=== PATIENT | male | born 1955 | race Hispanic/Latino ===

== ENCOUNTER 2020-10-18 07:53 | Outpatient (CLI) | payer MEDICARE | END 2020-10-18 07:54 | disposition home or self-care (01) | LOC: CSHULT 07:53 | PROVIDERS: ATTEND Internal Medicine | DX: Z94.4 Liver transplant status (principal); R74.9 Abnormal serum enzyme level, unspecified; R93.2 Abnormal findings on diagnostic imaging of liver and biliary tract | CPT/HCPCS: 93975 ==

== ENCOUNTER 2023-03-31 12:44 | Inpatient (IN) | payer MEDICARE ==
[2023-03-31 14:11] LABS: #Basophils 0.1 10x3/uL (0.0-0.2); #Monocytes 0.6 10x3/uL (0.0-1.1); #Neutrophils 3.9 10x3/uL (1.5-8.4); %Basophils 0.8 % (0.0-2.0); %Eosinophils 0.5 % (0.0-6.0); %Lymphocytes 23.6 % (18.0-47.0); %Monocytes 9.4 % (0.0-10.0); %Neutrophils 65.4 % (40.0-75.0); Hematocrit 42.7 % (38.8-50.0); Mean Corpuscular HGB CONC 32.8 g/dL (32.0-36.0); Mean Corpuscular Hemoglobin 32.4 pg (27.0-33.0); Mean Corpuscular Volume 98.8 fl (81.2-95.1); Platelet Count 205 10x3/uL (150-450); RBC Distribution Width 12.9 % (11.5-14.5); Red Blood Cell (RBC) Count 4.32 10x6/uL (4.32-5.72); White Blood Cell (WBC) Count 5.9 10x3/uL (3.5-10.5)
[2023-03-31 14:20] LABS: ALT (SGPT) 21 U/L (8-55); AST (SGOT) 211 U/L (5-34); Albumin 3.5 g/dL (3.4-4.8); Alkaline Phosphatase 285 U/L (40-110); Anion Gap 19 mmol/L (10-20); BUN (Urea Nitrogen) 40 mg/dL (8.4-25.7); Bilirubin, Total 0.8 mg/dL (0.2-1.2); Calc. Creatinine Clearance 0 mL/min (70-130); Calcium 8.8 mg/dL (7.8-10.44); Carbon Dioxide 19 mmol/L (23-31); Chloride 104 mmol/L (98-107); Estimated GFR 33; Globulin 3.4 g/dL (2.4-3.5); Glucose 157 mg/dL (80-115); Potassium 4.3 mmol/L (3.5-5.1); Protein, Total 6.9 g/dL (5.8-8.1); Sodium 138 mmol/L (136-145)
[2023-03-31] MEDS ORDERED: Ondansetron ODT 4 MG TAB PO PRN (15:49)
[2023-03-31] MEDS ORDERED: Glucagon 1 MG/ML KIT IM PRN (15:49)
[2023-03-31] MEDS ORDERED: Acetaminophen 325 MG TAB PO PRN (15:49)
[2023-03-31] MEDS ORDERED: Dextrose 50% Abboject 50 ML SYRINGE SLOW IVP PRN (15:49)
[2023-03-31] MEDS ORDERED: Dextrose 5% in Water 1,000 ML IV PRN (15:49)
[2023-03-31 16:40] LABS: Magnesium 1.6 mg/dL (1.6-2.6)
[2023-03-31] MEDS ORDERED: Magnesium 2 GM/50 ML(in water) 2 GM in Premix 1 BAG IVPB SCH (17:45)
[2023-03-31 17:57] LABS: Troponin I Greater than 45.000 ng/mL (< 0.028)
[2023-03-31] MEDS ORDERED: Magnesium 2 GM/50 ML BAG (IN WATER) ONE (18:14)
[2023-03-31 20:07] LABS: Hemoglobin A1c 5.8 % (4.0-6.0)
[2023-03-31] MEDS: Insulin Regular 300 UNITS/3 ML VIAL SC PRN (22:41)
[2023-03-31] MEDS: Famotidine 20 MG TAB PO SCH (22:42)
[2023-04-01] MEDS ORDERED: Metoprolol Tartrate 25 MG TAB PO SCH ×2 (01:00→09:00)
[2023-04-01] MEDS: Morphine 2 MG/ML VIAL SLOW IVP PRN ×2 (01:06→05:45)
[2023-04-01] MEDS ORDERED: Nitroglycerin 0.4 MG TAB (25 Tab Bottle) SL PRN (01:28)
[2023-04-01 03:57] LABS: #Monocytes 0.6 10x3/uL (0.0-1.1); #Neutrophils 4.3 10x3/uL (1.5-8.4); %Basophils 0.7 % (0.0-2.0); %Eosinophils 0.2 % (0.0-6.0); %Lymphocytes 15.9 % (18.0-47.0); %Monocytes 10.2 % (0.0-10.0); %Neutrophils 72.8 % (40.0-75.0); Hematocrit 39.4 % (38.8-50.0); Mean Corpuscular Hemoglobin 32.7 pg (27.0-33.0); Mean Corpuscular Volume 99.2 fl (81.2-95.1); Platelet Count 183 10x3/uL (150-450); RBC Distribution Width 12.9 % (11.5-14.5); Red Blood Cell (RBC) Count 3.97 10x6/uL (4.32-5.72); White Blood Cell (WBC) Count 5.9 10x3/uL (3.5-10.5)
[2023-04-01 04:02] LABS: ALT (SGPT) 22 U/L (8-55); AST (SGOT) 214 U/L (5-34); Albumin 3.2 g/dL (3.4-4.8); Alkaline Phosphatase 247 U/L (40-110); Anion Gap 17 mmol/L (10-20); BUN (Urea Nitrogen) 44 mg/dL (8.4-25.7); Bilirubin, Total 0.6 mg/dL (0.2-1.2); Calc. Creatinine Clearance 35 mL/min (70-130); Calcium 9.1 mg/dL (7.8-10.44); Carbon Dioxide 18 mmol/L (23-31); Chloride 105 mmol/L (98-107); Estimated GFR 33; Globulin 3.6 g/dL (2.4-3.5); Glucose 167 mg/dL (80-115); Potassium 4.4 mmol/L (3.5-5.1); Protein, Total 6.8 g/dL (5.8-8.1); Sodium 136 mmol/L (136-145)
[2023-04-01] MEDS: Insulin Regular 300 UNITS/3 ML VIAL SC PRN (05:42)
[2023-04-01] MEDS: Aspirin Chewable 81 MG TAB PO SCH ×3 (08:25→09:51)
[2023-04-01] MEDS ORDERED: Iopamidol 300 61% 100 ML VIAL FS ONE (08:51)
[2023-04-01] MEDS ORDERED: Furosemide 100 MG/10 ML VIAL SLOW IVP SCH (09:00)
[2023-04-01] MEDS ORDERED: FLU VACC QS2023(65UP)/MF59C/PF 60 MCG/0.5 ML SYRINGE IM ONE (09:00)
[2023-04-01] MEDS ORDERED: Lidocaine 1% (PF) 30 ML VIAL ONE (09:46)
[2023-04-01] MEDS ORDERED: Bivalirudin 250 MG VIAL ONE (09:46)
[2023-04-01] MEDS ORDERED: Nitroglycerin 50 MG/250 ML BOT 250 ML ONE (09:47)
[2023-04-01] MEDS ORDERED: Heparin 10,000 UNITS/ 10 ML VIAL ONE ×2 (09:51→12:32)
[2023-04-01] MEDS ORDERED: Verapamil 5 MG/2 ML VIAL ONE (09:52)
[2023-04-01] MEDS ORDERED: Ondansetron PF 4 MG/2 ML Vial ONE ×2 (11:48→12:07)
[2023-04-01] MEDS ORDERED: Atropine Sulfate 1 mg/1 ml Vial ONE (11:52)
[2023-04-01] MEDS ORDERED: PHENYLEPHRINE-NS 100 MCG/ML 10 ML SYRINGE ONE (11:52)
[2023-04-01] MEDS ORDERED: fentaNYL 50 mcg/mL 1 mL Vial ONE (11:53)
[2023-04-01] MEDS ORDERED: Midazolam HCl 2 mg/2 ml Vial ONE (11:53)
[2023-04-01] MEDS ORDERED: TICAGRELOR 90 MG TABLET ONE (12:48)
[2023-04-01] MEDS: Furosemide 100 MG/10 ML VIAL SLOW IVP SCH (15:00)
[2023-04-01] MEDS: Famotidine 20 MG TAB PO SCH (21:11)
[2023-04-01] MEDS: TICAGRELOR 90 MG TABLET PO SCH (21:11)
[2023-04-01] MEDS: Rosuvastatin 20 MG TAB PO SCH (21:11)
[2023-04-02 03:48] LABS: ALT (SGPT) 23 U/L (8-55); AST (SGOT) 173 U/L (5-34); Albumin 3.2 g/dL (3.4-4.8); Alkaline Phosphatase 249 U/L (40-110); Anion Gap 23 mmol/L (10-20); BUN (Urea Nitrogen) 58 mg/dL (8.4-25.7); Bilirubin, Total 0.8 mg/dL (0.2-1.2); Calc. Creatinine Clearance 23 mL/min (70-130); Calcium 9.2 mg/dL (7.8-10.44); Carbon Dioxide 16 mmol/L (23-31); Chloride 100 mmol/L (98-107); Estimated GFR 19; Globulin 3.7 g/dL (2.4-3.5); Glucose 198 mg/dL (80-115); Potassium 5.6 mmol/L (3.5-5.1); Protein, Total 6.9 g/dL (5.8-8.1); Sodium 133 mmol/L (136-145)
[2023-04-02 04:00] LABS: Hematocrit 39.8 % (38.8-50.0); MDiff Complete? YES; Mean Corpuscular HGB CONC 32.7 g/dL (32.0-36.0); Mean Corpuscular Hemoglobin 33.2 pg (27.0-33.0); Mean Corpuscular Volume 101.8 fl (81.2-95.1); Mean Platelet Volume 13.5 fl (7.4-10.4); Platelet Count 177 10x3/uL (150-450); RBC Distribution Width 13.6 % (11.5-14.5); Red Blood Cell (RBC) Count 3.91 10x6/uL (4.32-5.72); White Blood Cell (WBC) Count 6.8 10x3/uL (3.5-10.5)
[2023-04-02 05:18] LABS: Band 4 % (5-11); Lymphocytes 11 % (21-51); Monocytes 8 % (0-10); Neutrophil 77 % (42-75)
[2023-04-02 05:20] LABS: Large Platelets SLIGHT (None Seen); Macrocytosis SLIGHT = 6-15 cells (100X) (0-5/hpf); Platelet Adequacy Comment Appears Adequate
[2023-04-02] MEDS: Furosemide 100 MG/10 ML VIAL SLOW IVP SCH (05:31)
[2023-04-02] MEDS: Insulin Regular 300 UNITS/3 ML VIAL SC PRN ×3 (05:33→17:37)
[2023-04-02] MEDS ORDERED: Dextrose 50% Abboject 50 ML SYRINGE SLOW IVP SCH (08:00)
[2023-04-02] MEDS ORDERED: Insulin Regular 300 UNITS/3 ML VIAL IVP SCH (08:00)
[2023-04-02] MEDS: Aspirin Chewable 81 MG TAB PO SCH (08:38)
[2023-04-02] MEDS: TICAGRELOR 90 MG TABLET PO SCH ×2 (08:38→20:22)
[2023-04-02] MEDS ORDERED: LOKELMA 5 GM PACKET PO SCH (09:00)
[2023-04-02] MEDS ORDERED: Sodium Bicarbonate Tab 325 MG TAB PO SCH (09:00)
[2023-04-02] MEDS ORDERED: Sodium Bicarbonate 150 MEQ, Admixture Fee 1 EACH in Dextrose 5% in Water 1,000 ML IV SCH (09:00)
[2023-04-02] MEDS: Sodium Bicarbonate Tab 325 MG TAB PO SCH ×3 (10:06→20:23)
[2023-04-02] MEDS ORDERED: Furosemide 40 MG/4 ML VIAL SLOW IVP SCH (14:00)
[2023-04-02] MEDS: Famotidine 20 MG TAB PO SCH (20:23)
[2023-04-02] MEDS: Rosuvastatin 20 MG TAB PO SCH (20:23)
[2023-04-03] MEDS ORDERED: HumaLOG 300 UNITS/3 ML VIAL SC SCH (00:30)
[2023-04-03 04:26] LABS: Anion Gap 22 mmol/L (10-20); BUN (Urea Nitrogen) 77 mg/dL (8.4-25.7); Calc. Creatinine Clearance 15 mL/min (70-130); Calcium 9.2 mg/dL (7.8-10.44); Carbon Dioxide 17 mmol/L (23-31); Chloride 97 mmol/L (98-107); Estimated GFR 12; Glucose 229 mg/dL (80-115); Potassium 5.1 mmol/L (3.5-5.1); Sodium 131 mmol/L (136-145)
[2023-04-03 04:27] LABS: #Basophils 0.1 10x3/uL (0.0-0.2); #Monocytes 0.9 10x3/uL (0.0-1.1); #Neutrophils 5.1 10x3/uL (1.5-8.4); %Basophils 0.9 % (0.0-2.0); %Eosinophils 0.3 % (0.0-6.0); %Lymphocytes 12.1 % (18.0-47.0); %Monocytes 13.4 % (0.0-10.0); %Neutrophils 72.9 % (40.0-75.0); Hematocrit 39.4 % (38.8-50.0); Hemoglobin 13.1 g/dL (13.5-17.5); Mean Corpuscular HGB CONC 33.2 g/dL (32.0-36.0); Mean Corpuscular Hemoglobin 33.1 pg (27.0-33.0); Mean Corpuscular Volume 99.5 fl (81.2-95.1); Mean Platelet Volume 13.7 fl (7.4-10.4); Platelet Count 195 10x3/uL (150-450); RBC Distribution Width 13.5 % (11.5-14.5); Red Blood Cell (RBC) Count 3.96 10x6/uL (4.32-5.72); White Blood Cell (WBC) Count 6.9 10x3/uL (3.5-10.5)
[2023-04-03] MEDS: Insulin Regular 300 UNITS/3 ML VIAL SC PRN ×3 (06:16→17:15)
[2023-04-03] MEDS: Sodium Bicarbonate Tab 325 MG TAB PO SCH ×4 (08:36→21:30)
[2023-04-03] MEDS: Aspirin Chewable 81 MG TAB PO SCH (08:36)
[2023-04-03] MEDS: TICAGRELOR 90 MG TABLET PO SCH ×2 (08:36→21:27)
[2023-04-03] MEDS: Famotidine 20 MG TAB PO SCH (21:28)
[2023-04-03] MEDS: Rosuvastatin 20 MG TAB PO SCH (21:28)
[2023-04-04 04:30] LABS: Anion Gap 26 mmol/L (10-20); BUN (Urea Nitrogen) 90 mg/dL (8.4-25.7); Calc. Creatinine Clearance 12 mL/min (70-130); Calcium 8.8 mg/dL (7.8-10.44); Carbon Dioxide 15 mmol/L (23-31); Chloride 95 mmol/L (98-107); Estimated GFR 9; Glucose 189 mg/dL (80-115); Potassium 5.3 mmol/L (3.5-5.1); Sodium 131 mmol/L (136-145)
[2023-04-04 04:32] LABS: #Neutrophils 7.5 10x3/uL (1.5-8.4); %Basophils 0.3 % (0.0-2.0); %Eosinophils 0.1 % (0.0-6.0); %Lymphocytes 6.1 % (18.0-47.0); %Monocytes 10.5 % (0.0-10.0); %Neutrophils 82.7 % (40.0-75.0); Hematocrit 38.5 % (38.8-50.0); Hemoglobin 12.8 g/dL (13.5-17.5); Mean Corpuscular HGB CONC 33.2 g/dL (32.0-36.0); Mean Corpuscular Hemoglobin 32.9 pg (27.0-33.0); Mean Platelet Volume 13.7 fl (7.4-10.4); Platelet Count 169 10x3/uL (150-450); RBC Distribution Width 13.8 % (11.5-14.5); Red Blood Cell (RBC) Count 3.89 10x6/uL (4.32-5.72); White Blood Cell (WBC) Count 9.1 10x3/uL (3.5-10.5)
[2023-04-04] MEDS: Insulin Regular 300 UNITS/3 ML VIAL SC PRN ×3 (06:07→17:27)
[2023-04-04] MEDS: Aspirin Chewable 81 MG TAB PO SCH (08:06)
[2023-04-04] MEDS: Sodium Bicarbonate Tab 325 MG TAB PO SCH ×3 (08:08→22:14)
[2023-04-04] MEDS: TICAGRELOR 90 MG TABLET PO SCH ×2 (08:08→22:13)
[2023-04-04] MEDS ORDERED: DOBUTamine 500 mg/250 ml 250 ML IVPB SCH (10:00)
[2023-04-04] MEDS ORDERED: Tuberculin PPD 0.1 ML VIAL I-DERMAL SCH ×2 (11:00)
[2023-04-04 12:29] LABS: HBSAg Index 0.18 S/CO (0-0.99); Hep B Surf Ag Non-Reactive S/CO (NonReactive)
[2023-04-04 16:34] LABS: HBSAB Concentration Less than 8.00 mIU/mL; Hep B Core Total Ab Non-Reactive (NonReactive); Hep B Core Total Index 0.12 S/CO (0-0.79); Hep B Surf AB Non-Reactive (NonReactive); Hep C IgG Ab Non-Reactive S/CO (NonReactive)
[2023-04-04] MEDS: Rosuvastatin 20 MG TAB PO SCH (22:14)
[2023-04-04] MEDS: Famotidine 20 MG TAB PO SCH (22:14)
[2023-04-05 04:40] LABS: #Monocytes 0.8 10x3/uL (0.0-1.1); #Neutrophils 6.2 10x3/uL (1.5-8.4); %Basophils 0.3 % (0.0-2.0); %Eosinophils 0.4 % (0.0-6.0); %Lymphocytes 7.3 % (18.0-47.0); %Monocytes 10.8 % (0.0-10.0); %Neutrophils 80.8 % (40.0-75.0); Hematocrit 34.2 % (38.8-50.0); Hemoglobin 11.5 g/dL (13.5-17.5); Mean Corpuscular HGB CONC 33.6 g/dL (32.0-36.0); Mean Corpuscular Hemoglobin 32.3 pg (27.0-33.0); Mean Corpuscular Volume 96.1 fl (81.2-95.1); Mean Platelet Volume 13.1 fl (7.4-10.4); Platelet Count 194 10x3/uL (150-450); RBC Distribution Width 13.8 % (11.5-14.5); Red Blood Cell (RBC) Count 3.56 10x6/uL (4.32-5.72); White Blood Cell (WBC) Count 7.7 10x3/uL (3.5-10.5)
[2023-04-05 04:54] LABS: Anion Gap 23 mmol/L (10-20); BUN (Urea Nitrogen) 66 mg/dL (8.4-25.7); Calc. Creatinine Clearance 13 mL/min (70-130); Calcium 8.5 mg/dL (7.8-10.44); Carbon Dioxide 20 mmol/L (23-31); Chloride 96 mmol/L (98-107); Estimated GFR 10; Glucose 142 mg/dL (80-115); Potassium 4.8 mmol/L (3.5-5.1); Sodium 134 mmol/L (136-145)
[2023-04-05] MEDS: Aspirin Chewable 81 MG TAB PO SCH (08:10)
[2023-04-05] MEDS: Sodium Bicarbonate Tab 325 MG TAB PO SCH ×3 (08:10→21:36)
[2023-04-05] MEDS: TICAGRELOR 90 MG TABLET PO SCH ×2 (08:10→21:36)
[2023-04-05] MEDS ORDERED: Heparin 10,000 UNITS/ 10 ML VIAL CATH PRN (11:39)
[2023-04-05] MEDS ORDERED: Digoxin 0.5 MG/2 ML AMP SLOW IVP SCH (21:15)
[2023-04-05] MEDS: Famotidine 20 MG TAB PO SCH (21:36)
[2023-04-05] MEDS: Rosuvastatin 20 MG TAB PO SCH (21:36)
[2023-04-05] MEDS: Insulin Regular 300 UNITS/3 ML VIAL SC PRN (21:41)
[2023-04-06 03:57] LABS: #Monocytes 0.7 10x3/uL (0.0-1.1); #Neutrophils 4.8 10x3/uL (1.5-8.4); %Basophils 0.3 % (0.0-2.0); %Eosinophils 0.3 % (0.0-6.0); %Lymphocytes 7.8 % (18.0-47.0); %Monocytes 11.2 % (0.0-10.0); %Neutrophils 80.1 % (40.0-75.0); Hematocrit 34.1 % (38.8-50.0); Hemoglobin 11.5 g/dL (13.5-17.5); Mean Corpuscular HGB CONC 33.7 g/dL (32.0-36.0); Mean Corpuscular Hemoglobin 32.8 pg (27.0-33.0); Mean Corpuscular Volume 97.2 fl (81.2-95.1); Platelet Count 198 10x3/uL (150-450); RBC Distribution Width 14.1 % (11.5-14.5); Red Blood Cell (RBC) Count 3.51 10x6/uL (4.32-5.72); White Blood Cell (WBC) Count 6.1 10x3/uL (3.5-10.5)
[2023-04-06 04:15] LABS: Anion Gap 24 mmol/L (10-20); BUN (Urea Nitrogen) 43 mg/dL (8.4-25.7); Calc. Creatinine Clearance 17 mL/min (70-130); Calcium 8.4 mg/dL (7.8-10.44); Carbon Dioxide 23 mmol/L (23-31); Chloride 96 mmol/L (98-107); Estimated GFR 14; Glucose 198 mg/dL (80-115); Potassium 4.5 mmol/L (3.5-5.1); Sodium 138 mmol/L (136-145)
[2023-04-06] MEDS: Insulin Regular 300 UNITS/3 ML VIAL SC PRN ×2 (06:55→17:34)
[2023-04-06] MEDS: Sodium Bicarbonate Tab 325 MG TAB PO SCH ×3 (08:52→20:49)
[2023-04-06] MEDS: TICAGRELOR 90 MG TABLET PO SCH ×2 (08:52→20:50)
[2023-04-06] MEDS: Amiodarone 200 MG TAB PO SCH ×3 (08:53→20:50)
[2023-04-06] MEDS: Aspirin Chewable 81 MG TAB PO SCH (08:53)
[2023-04-06] MEDS ORDERED: Digoxin 0.125 MG TAB PO SCH (09:00)
[2023-04-06] MEDS: Famotidine 20 MG TAB PO SCH (20:49)
[2023-04-06] MEDS: Rosuvastatin 20 MG TAB PO SCH (20:49)
[2023-04-07 04:39] LABS: Anion Gap 20 mmol/L (10-20); BUN (Urea Nitrogen) 51 mg/dL (8.4-25.7); Calc. Creatinine Clearance 15 mL/min (70-130); Calcium 8.4 mg/dL (7.8-10.44); Carbon Dioxide 25 mmol/L (23-31); Chloride 94 mmol/L (98-107); Estimated GFR 11; Glucose 135 mg/dL (80-115); Sodium 135 mmol/L (136-145)
[2023-04-07 04:40] LABS: #Eosinphils 0.1 10x3/uL (0.0-0.5); #Monocytes 0.6 10x3/uL (0.0-1.1); #Neutrophils 4.8 10x3/uL (1.5-8.4); %Basophils 0.5 % (0.0-2.0); %Eosinophils 1.8 % (0.0-6.0); %Lymphocytes 8.8 % (18.0-47.0); %Monocytes 9.3 % (0.0-10.0); %Neutrophils 78.9 % (40.0-75.0); Hematocrit 33.3 % (38.8-50.0); Hemoglobin 10.9 g/dL (13.5-17.5); Mean Corpuscular HGB CONC 32.7 g/dL (32.0-36.0); Mean Corpuscular Hemoglobin 32.5 pg (27.0-33.0); Mean Corpuscular Volume 99.4 fl (81.2-95.1); Mean Platelet Volume 13.1 fl (7.4-10.4); Platelet Count 181 10x3/uL (150-450); RBC Distribution Width 14.1 % (11.5-14.5); Red Blood Cell (RBC) Count 3.35 10x6/uL (4.32-5.72); White Blood Cell (WBC) Count 6.1 10x3/uL (3.5-10.5)
[2023-04-07] MEDS: TICAGRELOR 90 MG TABLET PO SCH ×2 (08:00→21:13)
[2023-04-07] MEDS: Aspirin Chewable 81 MG TAB PO SCH (08:00)
[2023-04-07] MEDS: Amiodarone 200 MG TAB PO SCH ×3 (08:00→21:12)
[2023-04-07] MEDS: Sodium Bicarbonate Tab 325 MG TAB PO SCH ×3 (08:00→21:11)
[2023-04-07] MEDS ORDERED: READ PPD TEST SITE PO SCH (09:00)
[2023-04-07] MEDS ORDERED: CEFAZOLIN 2 GM in Sodium Chloride 0.9% 100 ML IVPB SCH (10:45)
[2023-04-07] MEDS ORDERED: Empagliflozin 10 MG TAB PO SCH (11:04)
[2023-04-07] MEDS ORDERED: hydrOXYzine 25 MG TAB PO PRN (11:07)
[2023-04-07] MEDS ORDERED: Lisinopril 2.5 MG TAB PO SCH ×2 (11:15→11:30)
[2023-04-07] MEDS ORDERED: Lidocaine 2% 10 ML INJ ONE (13:57)
[2023-04-07] MEDS ORDERED: Heparin 10,000 UNITS/ 10 ML VIAL ONE ×2 (13:58→16:36)
[2023-04-07] MEDS ORDERED: Protamine Sulfate 50 MG/5 ML VIAL ONE (13:58)
[2023-04-07] MEDS ORDERED: Heparin 5,000 UNITS/ML VIAL ONE (13:58)
[2023-04-07] MEDS ORDERED: Iopamidol 0 ML ONE (13:59)
[2023-04-07] MEDS ORDERED: EPINEPHrine 1 MG/ML VIAL ONE ×2 (14:56→15:04)
[2023-04-07] MEDS ORDERED: Bupivacaine PF 0.5% 30 ML VIAL ONE (15:04)
[2023-04-07] MEDS ORDERED: fentaNYL 50 mcg/mL 1 mL Vial ONE (15:44)
[2023-04-07] MEDS ORDERED: KETAMINE 100 MG/ML (5ML VIAL) ONE (15:46)
[2023-04-07] MEDS ORDERED: Midazolam HCl 2 mg/2 ml Vial ONE (15:47)
[2023-04-07] MEDS ORDERED: traMADol HCl 50 MG TAB PO PRN (15:53)
[2023-04-07] MEDS ORDERED: CEFAZOLIN 1 GM VIAL ONE (16:07)
[2023-04-07] MEDS ORDERED: PROPOFOL 20 ML ONE (16:07)
[2023-04-07] MEDS: Rosuvastatin 10 MG TAB PO SCH (21:12)
[2023-04-07] MEDS: Famotidine 20 MG TAB PO SCH (21:13)
[2023-04-08 04:19] LABS: Albumin 2.7 g/dL (3.4-4.8); Anion Gap 22 mmol/L (10-20); BUN (Urea Nitrogen) 40 mg/dL (8.4-25.7); BUN/Creatinine Ratio 8.79; Calc. Creatinine Clearance 17 mL/min (70-130); Calcium 8.2 mg/dL (7.8-10.44); Carbon Dioxide 22 mmol/L (23-31); Chloride 94 mmol/L (98-107); Estimated GFR 13; Glucose 218 mg/dL (80-115); Phosphorus 5.4 mg/dL (2.3-4.7); Potassium 4.3 mmol/L (3.5-5.1); Sodium 134 mmol/L (136-145)
[2023-04-08 04:27] LABS: #Monocytes 0.7 10x3/uL (0.0-1.1); #Neutrophils 4.4 10x3/uL (1.5-8.4); %Basophils 0.2 % (0.0-2.0); %Eosinophils 0.5 % (0.0-6.0); %Lymphocytes 7.1 % (18.0-47.0); %Monocytes 11.9 % (0.0-10.0); %Neutrophils 79.9 % (40.0-75.0); Hematocrit 32.3 % (38.8-50.0); Hemoglobin 10.5 g/dL (13.5-17.5); Mean Corpuscular HGB CONC 32.5 g/dL (32.0-36.0); Mean Corpuscular Hemoglobin 32.6 pg (27.0-33.0); Mean Corpuscular Volume 100.3 fl (81.2-95.1); Platelet Count 171 10x3/uL (150-450); RBC Distribution Width 13.9 % (11.5-14.5); Red Blood Cell (RBC) Count 3.22 10x6/uL (4.32-5.72); White Blood Cell (WBC) Count 5.5 10x3/uL (3.5-10.5)
[2023-04-08] MEDS ORDERED: Aspirin 81 mg Enteric Coated Tablet PO SCH (09:00)
[2023-04-08] MEDS: Lisinopril 2.5 MG TAB PO SCH (09:16)
[2023-04-08] MEDS: Amiodarone 200 MG TAB PO SCH ×3 (09:16→22:15)
[2023-04-08] MEDS: Aspirin Chewable 81 MG TAB PO SCH (09:16)
[2023-04-08] MEDS: Sodium Bicarbonate Tab 325 MG TAB PO SCH ×3 (09:17→22:13)
[2023-04-08] MEDS: TICAGRELOR 90 MG TABLET PO SCH ×2 (09:18→22:17)
[2023-04-08] MEDS: Venlafaxine 75 MG TAB PO SCH (09:18)
[2023-04-08] MEDS: Insulin Regular 300 UNITS/3 ML VIAL SC PRN (17:17)
[2023-04-08] MEDS: Rosuvastatin 10 MG TAB PO SCH ×2 (21:00→22:18)
[2023-04-08] MEDS ORDERED: CYCLOSPORINE 25 MG PO SCH (21:00)
[2023-04-08] MEDS ORDERED: Atorvastatin Calcium 10 MG TAB PO SCH (21:00)
[2023-04-08] MEDS: azaTHIOprine 50 MG TAB PO SCH (22:14)
[2023-04-08] MEDS: cycloSPORINE, Modified 25 MG CAP PO SCH (22:15)
[2023-04-08] MEDS: Famotidine 20 MG TAB PO SCH (22:15)
[2023-04-09 03:43] LABS: #Eosinphils 0.1 10x3/uL (0.0-0.5); #Monocytes 0.7 10x3/uL (0.0-1.1); #Neutrophils 4.3 10x3/uL (1.5-8.4); %Basophils 0.5 % (0.0-2.0); %Eosinophils 1.8 % (0.0-6.0); %Lymphocytes 9.8 % (18.0-47.0); %Monocytes 11.8 % (0.0-10.0); %Neutrophils 75.6 % (40.0-75.0); Hematocrit 33.4 % (38.8-50.0); Hemoglobin 10.7 g/dL (13.5-17.5); Mean Corpuscular Hemoglobin 32.3 pg (27.0-33.0); Mean Corpuscular Volume 100.9 fl (81.2-95.1); Platelet Count 172 10x3/uL (150-450); RBC Distribution Width 13.8 % (11.5-14.5); Red Blood Cell (RBC) Count 3.31 10x6/uL (4.32-5.72); White Blood Cell (WBC) Count 5.7 10x3/uL (3.5-10.5)
[2023-04-09] MEDS: Lisinopril 2.5 MG TAB PO SCH (11:24)
[2023-04-09] MEDS: Amiodarone 200 MG TAB PO SCH ×2 (14:53→20:48)
[2023-04-09] MEDS: Sodium Bicarbonate Tab 325 MG TAB PO SCH ×3 (14:54→20:45)
[2023-04-09] MEDS: Aspirin Chewable 81 MG TAB PO SCH (14:56)
[2023-04-09] MEDS: TICAGRELOR 90 MG TABLET PO SCH ×2 (14:59→20:50)
[2023-04-09] MEDS: Venlafaxine 75 MG TAB PO SCH (15:01)
[2023-04-09] MEDS: cycloSPORINE, Modified 25 MG CAP PO SCH ×2 (15:21→20:54)
[2023-04-09 15:51] LABS: Anion Gap 19 mmol/L (10-20); BUN (Urea Nitrogen) 29 mg/dL (8.4-25.7); Calc. Creatinine Clearance 21 mL/min (70-130); Calcium 8.5 mg/dL (7.8-10.44); Carbon Dioxide 26 mmol/L (23-31); Chloride 97 mmol/L (98-107); Estimated GFR 17; Glucose 191 mg/dL (80-115); Potassium 3.5 mmol/L (3.5-5.1); Sodium 138 mmol/L (136-145)
[2023-04-09] MEDS: Famotidine 20 MG TAB PO SCH (20:48)
[2023-04-09] MEDS: Rosuvastatin 10 MG TAB PO SCH (20:48)
[2023-04-09] MEDS: Gabapentin 100 MG CAP PO SCH (20:49)
[2023-04-09] MEDS: azaTHIOprine 50 MG TAB PO SCH (20:50)
[2023-04-10] MEDS ORDERED: Digoxin 0.5 MG/2 ML AMP SLOW IVP SCH (03:15)
[2023-04-10 03:46] VITALS: BMI 25.7
[2023-04-10] MEDS: Insulin Regular 300 UNITS/3 ML VIAL SC PRN ×2 (06:44→21:48)
[2023-04-10 07:41] LABS: #Eosinphils 0.1 10x3/uL (0.0-0.5); #Monocytes 0.8 10x3/uL (0.0-1.1); #Neutrophils 3.8 10x3/uL (1.5-8.4); %Basophils 0.2 % (0.0-2.0); %Eosinophils 0.9 % (0.0-6.0); %Lymphocytes 11.4 % (18.0-47.0); %Monocytes 14.6 % (0.0-10.0); %Neutrophils 72.3 % (40.0-75.0); Hematocrit 31.6 % (38.8-50.0); Hemoglobin 10.2 g/dL (13.5-17.5); Mean Corpuscular HGB CONC 32.3 g/dL (32.0-36.0); Mean Corpuscular Hemoglobin 32.8 pg (27.0-33.0); Mean Corpuscular Volume 101.6 fl (81.2-95.1); Mean Platelet Volume 12.9 fl (7.4-10.4); Platelet Count 161 10x3/uL (150-450); RBC Distribution Width 13.9 % (11.5-14.5); Red Blood Cell (RBC) Count 3.11 10x6/uL (4.32-5.72); White Blood Cell (WBC) Count 5.3 10x3/uL (3.5-10.5)
[2023-04-10 08:01] LABS: Anion Gap 23 mmol/L (10-20); BUN (Urea Nitrogen) 42 mg/dL (8.4-25.7); Calc. Creatinine Clearance 16 mL/min (70-130); Calcium 8.5 mg/dL (7.8-10.44); Carbon Dioxide 23 mmol/L (23-31); Chloride 94 mmol/L (98-107); Estimated GFR 13; Glucose 238 mg/dL (80-115); Potassium 3.5 mmol/L (3.5-5.1); Sodium 136 mmol/L (136-145)
[2023-04-10] MEDS: Venlafaxine 75 MG TAB PO SCH (08:45)
[2023-04-10] MEDS: Aspirin Chewable 81 MG TAB PO SCH (08:45)
[2023-04-10] MEDS: Sodium Bicarbonate Tab 325 MG TAB PO SCH ×3 (08:45→21:49)
[2023-04-10] MEDS: TICAGRELOR 90 MG TABLET PO SCH ×2 (08:45→21:47)
[2023-04-10] MEDS: Gabapentin 100 MG CAP PO SCH ×2 (08:45→21:47)
[2023-04-10] MEDS: cycloSPORINE, Modified 25 MG CAP PO SCH ×2 (08:47→21:45)
[2023-04-10] MEDS: Amiodarone 200 MG TAB PO SCH ×2 (08:47→21:47)
[2023-04-10] MEDS: Lisinopril 2.5 MG TAB PO SCH (08:53)
[2023-04-10 09:00] LABS: Magnesium 2.1 mg/dL (1.6-2.6)
[2023-04-10] MEDS ORDERED: HYDROcodone/Acetaminophen 5/325 mg Tablet PO PRN (14:54)
[2023-04-10] MEDS ORDERED: Digoxin 0.25 MG TAB PO SCH (21:00)
[2023-04-10] MEDS: Rosuvastatin 10 MG TAB PO SCH (21:44)
[2023-04-10] MEDS: azaTHIOprine 50 MG TAB PO SCH (21:44)
[2023-04-10] MEDS: Famotidine 20 MG TAB PO SCH (21:47)
[2023-04-11] MEDS: Insulin Regular 300 UNITS/3 ML VIAL SC PRN ×2 (05:17→21:53)
[2023-04-11 08:17] LABS: Anion Gap 22 mmol/L (10-20); BUN (Urea Nitrogen) 56 mg/dL (8.4-25.7); Calc. Creatinine Clearance 13 mL/min (70-130); Calcium 8.4 mg/dL (7.8-10.44); Carbon Dioxide 25 mmol/L (23-31); Chloride 95 mmol/L (98-107); Estimated GFR 10; Glucose 149 mg/dL (80-115); Potassium 3.5 mmol/L (3.5-5.1); Sodium 138 mmol/L (136-145)
[2023-04-11] MEDS: Digoxin 0.125 MG TAB PO SCH (10:46)
[2023-04-11] MEDS: Venlafaxine 75 MG TAB PO SCH (10:47)
[2023-04-11] MEDS: cycloSPORINE, Modified 25 MG CAP PO SCH ×2 (10:47→21:52)
[2023-04-11] MEDS: Sodium Bicarbonate Tab 325 MG TAB PO SCH ×3 (10:48→21:52)
[2023-04-11] MEDS: Lisinopril 2.5 MG TAB PO SCH (10:48)
[2023-04-11] MEDS: Amiodarone 200 MG TAB PO SCH ×2 (10:48→21:53)
[2023-04-11] MEDS: Aspirin Chewable 81 MG TAB PO SCH (10:49)
[2023-04-11] MEDS: TICAGRELOR 90 MG TABLET PO SCH ×2 (10:52→21:52)
[2023-04-11] MEDS: Gabapentin 100 MG CAP PO SCH (21:51)
[2023-04-11] MEDS: Rosuvastatin 10 MG TAB PO SCH (21:51)
[2023-04-11] MEDS: azaTHIOprine 50 MG TAB PO SCH (21:52)
[2023-04-11] MEDS: Famotidine 20 MG TAB PO SCH (21:53)
[2023-04-12 05:52] LABS: Hematocrit 31.5 % (38.8-50.0); Hemoglobin 10.6 g/dL (13.5-17.5)
[2023-04-12 06:05] LABS: Anion Gap 20 mmol/L (10-20); BUN (Urea Nitrogen) 67 mg/dL (8.4-25.7); Calc. Creatinine Clearance 11 mL/min (70-130); Calcium 8.5 mg/dL (7.8-10.44); Carbon Dioxide 26 mmol/L (23-31); Chloride 96 mmol/L (98-107); Estimated GFR 8; Glucose 142 mg/dL (80-115); Potassium 3.5 mmol/L (3.5-5.1); Sodium 138 mmol/L (136-145)
[2023-04-12] MEDS: Sodium Bicarbonate Tab 325 MG TAB PO SCH ×3 (09:15→23:03)
[2023-04-12] MEDS: cycloSPORINE, Modified 25 MG CAP PO SCH ×2 (09:18→22:52)
[2023-04-12] MEDS: Digoxin 0.125 MG TAB PO SCH (09:18)
[2023-04-12] MEDS: Amiodarone 200 MG TAB PO SCH ×2 (09:18→22:56)
[2023-04-12] MEDS: TICAGRELOR 90 MG TABLET PO SCH ×2 (09:18→22:54)
[2023-04-12] MEDS: Aspirin Chewable 81 MG TAB PO SCH (09:18)
[2023-04-12] MEDS: Venlafaxine 75 MG TAB PO SCH (09:18)
[2023-04-12] MEDS: Lisinopril 2.5 MG TAB PO SCH (09:18)
[2023-04-12] MEDS: Gabapentin 100 MG CAP PO SCH (22:53)
[2023-04-12] MEDS: Famotidine 20 MG TAB PO SCH (22:55)
[2023-04-12] MEDS: Rosuvastatin 10 MG TAB PO SCH (22:55)
[2023-04-12] MEDS: azaTHIOprine 50 MG TAB PO SCH (22:55)
[2023-04-13 05:49] LABS: Anion Gap 24 mmol/L (10-20); BUN (Urea Nitrogen) 42 mg/dL (8.4-25.7); Calc. Creatinine Clearance 15 mL/min (70-130); Calcium 8.5 mg/dL (7.8-10.44); Carbon Dioxide 23 mmol/L (23-31); Chloride 98 mmol/L (98-107); Estimated GFR 12; Glucose 162 mg/dL (80-115); Sodium 141 mmol/L (136-145)
[2023-04-13] MEDS: Lisinopril 2.5 MG TAB PO SCH (08:48)
[2023-04-13] MEDS: Amiodarone 200 MG TAB PO SCH ×2 (10:07→22:18)
[2023-04-13] MEDS: Aspirin Chewable 81 MG TAB PO SCH (10:08)
[2023-04-13] MEDS: Venlafaxine 75 MG TAB PO SCH (10:08)
[2023-04-13] MEDS: TICAGRELOR 90 MG TABLET PO SCH ×2 (10:09→22:19)
[2023-04-13] MEDS: Digoxin 0.125 MG TAB PO SCH (10:13)
[2023-04-13] MEDS: cycloSPORINE, Modified 25 MG CAP PO SCH ×2 (10:15→22:15)
[2023-04-13] MEDS: Sodium Bicarbonate Tab 325 MG TAB PO SCH ×3 (10:17→22:16)
[2023-04-13] MEDS: Insulin Regular 300 UNITS/3 ML VIAL SC PRN (22:14)
[2023-04-13] MEDS: Rosuvastatin 10 MG TAB PO SCH (22:17)
[2023-04-13] MEDS: Famotidine 20 MG TAB PO SCH (22:18)
[2023-04-13] MEDS: azaTHIOprine 50 MG TAB PO SCH (22:18)
[2023-04-13] MEDS: Gabapentin 100 MG CAP PO SCH (22:19)
[2023-04-14] MEDS: cycloSPORINE, Modified 25 MG CAP PO SCH ×2 (08:42→11:52)
[2023-04-14] MEDS: Venlafaxine 75 MG TAB PO SCH ×2 (08:43→11:53)
[2023-04-14] MEDS: TICAGRELOR 90 MG TABLET PO SCH ×2 (08:43→11:53)
[2023-04-14] MEDS: Amiodarone 200 MG TAB PO SCH ×2 (08:43→11:52)
[2023-04-14] MEDS: Sodium Bicarbonate Tab 325 MG TAB PO SCH ×2 (08:43→11:53)
[2023-04-14] MEDS: Digoxin 0.125 MG TAB PO SCH ×2 (08:43→11:52)
[2023-04-14] MEDS: Lisinopril 2.5 MG TAB PO SCH ×2 (08:43→11:52)
[2023-04-14] MEDS: Aspirin Chewable 81 MG TAB PO SCH ×2 (08:43→11:52)
[2023-04-14 13:22] VITALS: BP 116/56; TEMP 97.9
[2023-04-14] MEDS ORDERED: Nystatin 500,000 UNITS/5 ML UDCUP SSW SCH (17:00)
== END 2023-04-14 15:15 | disposition hospice, home (50) | DRG 321 ==
LOC: CSHERS 12:44 → CSHERHOLD 15:45 → OBSVTOIN 15:46 → CSHERHOLD 15:46 → UNDOADMOB 15:46 → CSHTELE 22:08 → CSHERHOLD 22:08 → INTOOBSV 04-01 08:11 → OBSVTOIN 04-01 08:11 → CSHTELE 04-04 09:32
PROVIDERS: ADMIT Family Medicine; ATTEND Internal Medicine
PROC: 4A023N7 Measurement of Cardiac Sampling and Pressure, Left Heart, Percutaneous Approach (ICD-10-PCS; principal; 2023-04-01)
PROC: 027135Z Dilation of Coronary Artery, Two Arteries with Two Drug-eluting Intraluminal Devices, Percutaneous Approach (ICD-10-PCS; 2023-04-01)
PROC: B2151ZZ Fluoroscopy of Left Heart using Low Osmolar Contrast (ICD-10-PCS; 2023-04-01)
PROC: B2111ZZ Fluoroscopy of Multiple Coronary Arteries using Low Osmolar Contrast (ICD-10-PCS; 2023-04-01)
PROC: 06HY33Z Insertion of Infusion Device into Lower Vein, Percutaneous Approach (ICD-10-PCS; 2023-04-04)
PROC: 02HV33Z Insertion of Infusion Device into Superior Vena Cava, Percutaneous Approach (ICD-10-PCS; 2023-04-07)
DX: I21.4 Non-ST elevation (NSTEMI) myocardial infarction (principal); I50.43 Acute on chronic combined systolic (congestive) and diastolic (congestive) heart failure; J96.01 Acute respiratory failure with hypoxia; N18.6 End stage renal disease; N17.9 Acute kidney failure, unspecified; Z94.4 Liver transplant status; E87.20 Acidosis, unspecified; I13.2 Hypertensive heart and chronic kidney disease with heart failure and with stage 5 chronic kidney disease, or end stage renal disease; I47.20 Ventricular tachycardia, unspecified; I25.10 Atherosclerotic heart disease of native coronary artery without angina pectoris; Z95.5 Presence of coronary angioplasty implant and graft; F32.A Depression, unspecified; E11.22 Type 2 diabetes mellitus with diabetic chronic kidney disease; Z79.4 Long term (current) use of insulin; Z79.899 Other long term (current) drug therapy; E78.5 Hyperlipidemia, unspecified; K21.9 Gastro-esophageal reflux disease without esophagitis; I25.5 Ischemic cardiomyopathy; Z83.3 Family history of diabetes mellitus; D63.1 Anemia in chronic kidney disease; E88.09 Other disorders of plasma-protein metabolism, not elsewhere classified; E87.5 Hyperkalemia
CPT/HCPCS: 36415; 36416; 71045; 80048; 80053; 80069; 83036; 83735; 85014; 85018; 85025; 85347; 86580; 86704; 90935; 92921; 92928; 93005; 93010; 93306; 93458; 93970; 94760; 94762; 96374; 99152; 99153; C1725; C1726; C1752; C1760; C1769; C1874; C1887; C1894; C9600; G0257; J0171; J0461; J0583; J0690; J1160; J1250; J1642; J1644; J1650; J1815; J1940; J2001; J2250; J2272; J2405; J2704; J2720; J3010; J3475; J7500; J7515; J7999; Q9967; S0020